=== PATIENT | female | born 1965 | race Caucasian/White ===

== ENCOUNTER 2016-09-02 15:13 | Emergency (ER) | payer MEDICAID ==
[~2016-09-02] VITALS: Ht 152.4 cm; Wt 55.5 kg
[~2016-09-02 15:13] MED LIST: CHOL100062 PO; GABA300C16 PO; GLIM4TAB PO; IBUP-1542 PO; METF500T4 PO; TERB250T46 PO
[2016-09-02 15:25] VITALS: Ht 152.4 cm; Wt 55.5 kg
[2016-09-02 16:41] LABS: URINE BLOOD (Dip) POC 3+ (NEGATIVE)
[2016-09-02] MEDS ORDERED: METF500T PO (17:25)
[2016-09-02] MEDS ORDERED: NITR-58 PO (17:25)
--- NOTE | 2016-09-02 17:32 | ERD ---
ER Documentation Chief Complaint Date/Time DATE: 09/02/16 TIME: 17:29 Chief Complaint Dysuria X 1 day and B feet pain x 3 months. HPI This is a 51-year-old female with a history of diabetes type 2 presenting to the emergency department complaining of painful urination, urgency and frequency for 1 day. Patient rates his for 10. She denies any hematuria. Denies any flank pain. Denies fever. Patient also states that she has bilateral feet numbness and hand numbness for the past 3 months that comes and goes. Patient states that she has not taken her diabetic medications for 2 months due to her insurance and she has not know the drug name ROS All systems reviewed and are negative except as per history of present illness. Medications Home Meds Active Scripts Metformin Hcl (Glucophage) 500 Mg Tablet, 500 MG PO BID, #60 TAB Prov:TATUM CARBAJAL PA-C 09/02/16 Nitrofurantoin Monohyd Macrocr* (Macrobid*) 100 Mg Capsr, 100 MG PO BID for 7 Days, CAP Prov:TATUM CARBAJAL PA-C 09/02/16 Reported Medications Terbinafine* (Lamisil*) 250 Mg Tablet, 250 MG PO DAILY, TAB 06/01/14 Glimepiride* (Glimepiride*) 4 Mg Tablet, 4 MG PO DAILY, TAB 06/01/14 Ibuprofen* (Ibuprofen*) 600 Mg Tablet, 600 MG PO Q6 Y for PAIN, TAB 06/01/14 Gabapentin* (Gabapentin*) 300 Mg Capsule, 300 MG PO BID, CAP 06/01/14 Cholecalciferol* (Vitamin D3*) 1,000 Unit Tablet, 5000 UNIT PO ONCE WEEKLY , TAB 06/01/14 Metformin* (Glucophage*) 500 Mg Tab, 500 MG PO BID, TAB 02/11/14 Allergies Allergies: Coded Allergies: No Known Drug Allergies (Verified Allergy, Mild, 09/02/16) PMhx/Soc Medical and Surgical Hx: pt denies Medical Hx, pt denies Surgical Hx History of Surgery: No Anesthesia Reaction: No Hx Neurological Disorder: No Hx Respiratory Disorders: No Hx Cardiac Disorders: No (DIABETES) Hx Psychiatric Problems: No Hx Miscellaneous Medical Probl: Yes (DM) Hx Alcohol Use: No Hx Substance Use: No Hx Tobacco Use: No Smoking Status: Never smoker Physical Exam Vitals Vital Signs Date Time Temp Pulse Resp B/P Pulse Ox O2 Delivery O2 Flow Rate FiO2 09/02/16 15:25 97.9 94 18 144/73 100 Physical Exam General: well-developed/well-nourished, in no apparent distress, non-toxic appearing HENT: NC/AT Eyes: Conjunctiva normal Neck: Supple Pulm: CTA bilaterally, normal breathing CV: Normal S1S2 GI: Soft, non-distended, normal bowel sounds, NTTP on suprapubic region Back: No midline tenderness, no masses, No CVAT Ext: No clubbing, cyanosis, or edema Neuro: Alert and orientated Skin: intact, normal turgor Psych: Normal mood and mentation Results 24 hrs Laboratory Tests Test 09/02/16 16:41 09/02/16 17:16 Bedside Urine Blood 3+ Bedside Urine Glucose (UA) 0.50% Bedside Urine Ketones (LAB) 1+ Bedside Urine Leukocyte Esterase (L Negative Bedside Urine Nitrite (LAB) Positive Bedside Urine Protein (LAB) 3+ Bedside Urine pH (LAB) 5.5 Bedside Glucose 262mg/dL Procedures/MDM This is a 51-year-old female with a history of diabetes type 2 presenting to the emergency room complaining of dysuria for 1 day likely due to a urinary tract infection. She also complains of bilateral hand and feet numbness most likely due to diabetic neuropathy. Patient has not taken her diabetic medications for the past few months. An Accu-Chek was done in the ED and it was 262, I have a low suspicion for hyperosmolar state or DKA. Patient will be given a prescription for metformin 500 mg twice daily for the next month with close follow-up with the primary care physician. A urine dipstick was done and showed positive leukocyte esterase and nitrite. Patient was given a perception for Macrobid, urine culture was also sent out. I have a low suspicion for pyelonephritis or infected nephrolithiasis. Patient is 20 stable, afebrile and appears well for discharge to follow-up with the primary care physician in the next couple days. She understands and agrees with this plan Departure Diagnosis: Primary Impression: UTI (urinary tract infection) Urinary tract infection type: acute cystitis Hematuria presence: with hematuria Qualified Code: N30.01 - Acute cystitis with hematuria Additional Impression: Hyperglycemia Condition: Stable Patient Instructions: Hyperglycemia (High Blood Sugar), Understanding Urinary Tract Infections (UTIs) [facility] Usted se hyman hecho un examen mdico de control que le indica que no est en becca condicin que requiera tratamiento urgente en el Departamento de Emergencia. Un estudio ms profundo y el tratamiento de bates condicin pueden esperar sin ningn riesgo hasta que usted sea atendida/o en el consultorio de bates mdico o becca cl kindra. Es responsabilidad suya arreglar becca ashvin para el seguimiento del charlette. MANEJO DE CONDICIONES NO URGENTES EN EL FUTURO 1) Si usted tiene un mdico de atencin primaria: Usted debera llamar a bates mdico de atencin primaria antes de venir al departamento de emergencia. Despus de las horas de consultorio, bates doctor o bates asociado/a est disponible por telfono. El mdico o enfermero de sreekanth en el servicio telefnico puede asesorarle por fidel medio para atender el problema, o charlette contrario se puede programar becca ashvin. 2) Si usted no tiene un mdico de atencin primaria: Llame al mdico o clnica de referencia que aparece abajo bob las horas de consultorio para hacer becca ashvin para que le vean. CLINICAS: [facility] [phone] [facility] [phone] [facility] [phone] [facility]. [facility] [phone] [facility]. [facility] [phone] [address] [facility]. [phone] [address] [place] Additional Instructions: Visite a bates mdico maana para un EXAMEN.Regrese a estas instalaciones si no se mejora moni esperbamos o moni le dijimos. [place] toda la medicina sheila y moni se le indic. Regrese a estas instalaciones si no se mejora moni esperbamos o moni le dijimos. TATUM CARBAJAL PA-C Sep 02, 2016 17:32
== END 2016-09-02 17:56 | disposition home or self-care (01) ==
LOC: FTE 15:13
DX: N30.01 Acute cystitis with hematuria (principal); E11.65 Type 2 diabetes mellitus with hyperglycemia; Z79.84 Long term (current) use of oral hypoglycemic drugs
CPT/HCPCS: 81003; 82962; 87086; Z7502; 99284

== ENCOUNTER 2017-07-19 19:31 | Observation (INO) | payer MEDICAID, OTHER ==
[~2017-07-19] VITALS: Ht 152.4 cm; Wt 55.4 kg
[~2017-07-19 19:31] MED LIST changes: +METF500T PO; +NITR-58 PO
[2017-07-19] MEDS ORDERED: ASPIRIN 325 MG TAB PO STA (20:44)
[2017-07-19] MEDS ORDERED: NITROGLYCERIN 2% 1 GM OINT PKT TD STA (20:44)
[2017-07-19 20:47] VITALS: TEMP 98.3
--- NOTE | 2017-07-19 21:16 | RADRPT ---
PROCEDURE: XR Chest. CLINICAL INDICATION: Chest pain TECHNIQUE: Single frontal view of the chest was obtained COMPARISON: CR CHEST 02/11/2014 FINDINGS: The heart and mediastinum are within normal limits. The lungs are clear. There is no pleural effusion or pneumothorax. ECG leads projected over the chest. IMPRESSION: No acute disease. RPTAT: HJES .Pradip Yen MD, MD Date Time Electronically viewed and signed by .Pradip Yen MD, on 07/19/2017 21:16 .S/
[2017-07-19 21:25] LABS: BASOPHILS % 0.4 % (0.0-2.0); EOSINOPHILS % 0.7 % (0.0-7.0); HEMATOCRIT 39.4 % (37.0-47.0); HEMOGLOBIN 13.9 g/dl (12.0-16.0); LYMPHOCYTES # 2.3 10^3/ul (0.8-2.9); LYMPHOCYTES % 39.6 % (15.0-51.0); MEAN CORPUSCULAR HEMOGLOBIN 30.2 pg (29.0-33.0); MEAN CORPUSCULAR HGB CONC 35.3 g/dl (32.0-37.0); MEAN CORPUSCULAR VOLUME 85.7 fl (82.0-101.0); MEAN PLATELET VOLUME 10.9 fl (7.4-10.4); MONOCYTE # 0.3 10^3/ul (0.3-0.9); MONOCYTES % 5.1 % (0.0-11.0); NEUTROPHIL # 3.1 10^3/ul (1.6-7.5); PLATELET COUNT 219 10^3/UL (140-415); RED CELL DISTRIBUTION WIDTH 11.7 % (11.5-14.5); WHITE BLOOD COUNT 5.7 10^3/ul (4.8-10.8)
[2017-07-19 21:42] LABS: ANION GAP 13 (8-16); BLOOD UREA NITROGEN 10 mg/dl (7-20); CARBON DIOXIDE 29 mmol/L (21-31); CHLORIDE 98 mmol/L (97-110); CREATININE 0.45 mg/dl (0.44-1.00); POTASSIUM 3.4 mmol/L (3.5-5.1); SODIUM 137 mmol/L (135-144)
[2017-07-19 21:50] LABS: GLUCOSE 428 mg/dl (70-220)
[2017-07-19] MEDS ORDERED: SOD CHLORIDE 0.9% 500 ML IV STA (21:52)
[2017-07-19] MEDS ORDERED: INSULIN LISPRO 100 UNIT/ML VIAL SC STA (21:52)
[2017-07-19 21:54] LABS: TROPONIN-I < 0.012 ng/ml (0.00-0.12)
--- NOTE | 2017-07-19 22:10 | ERD ---
ER Documentation Chief Complaint Chief Complaint C/O MADHAVI LEG/ARM NUMBESS X2 WEEKS, +CHEST PRESSURE. HPI This is a 52-year-old [place]araguan-speaking female. A certified court/medical interpreter was used. The patient describes approximately 24 hours of chest pain. She describes it as pressure-like, central and left-sided radiating to the left upper extremity. She denies any significant exertional symptoms, no pleuritic pain. She is a diabetic and states compliance with medications. She denies any fevers or chills, no mid back pain. Mild discomfort currently approximately 2 out of 10. No prior stress testing. ROS All systems reviewed and are negative except as per history of present illness. Medications Home Meds Active Scripts Metformin Hcl (Glucophage) 500 Mg Tablet, 500 MG PO BID, #60 TAB Prov:TATUM CARBAJAL PA-C 09/02/16 Discontinued Reported Medications Terbinafine* (Lamisil*) 250 Mg Tablet, 250 MG PO DAILY, TAB 06/01/14 Glimepiride* (Glimepiride*) 4 Mg Tablet, 4 MG PO DAILY, TAB 06/01/14 Ibuprofen* (Ibuprofen*) 600 Mg Tablet, 600 MG PO Q6 Y for PAIN, TAB 06/01/14 Gabapentin* (Gabapentin*) 300 Mg Capsule, 300 MG PO BID, CAP 06/01/14 Cholecalciferol* (Vitamin D3*) 1,000 Unit Tablet, 5000 UNIT PO ONCE WEEKLY , TAB 06/01/14 Metformin* (Glucophage*) 500 Mg Tab, 500 MG PO BID, TAB 02/11/14 Discontinued Scripts Nitrofurantoin Monohyd Macrocr* (Macrobid*) 100 Mg Capsr, 100 MG PO BID for 7 Days, CAP Prov:TATUM CARBAJAL PA-C 09/02/16 Allergies Allergies: Coded Allergies: No Known Drug Allergies (Verified Allergy, Mild, 07/19/17) PMhx/Soc Medical and Surgical Hx: pt denies Surgical Hx History of Surgery: No Anesthesia Reaction: No Hx Neurological Disorder: No Hx Respiratory Disorders: No Hx Cardiac Disorders: No (DIABETES) Hx Psychiatric Problems: No Hx Miscellaneous Medical Probl: No (DM) Hx Alcohol Use: No Hx Substance Use: No Hx Tobacco Use: No Smoking Status: Never smoker FmHx Family History: diabetes Physical Exam Vitals Vital Signs Date Time Temp Pulse Resp B/P Pulse Ox O2 Delivery O2 Flow Rate FiO2 07/19/17 20:47 98.3 87 20 194/96 100 07/19/17 19:37 98.3 82 20 178/84 100 Physical Exam General: Well developed, well nourished, no acute distress Head: Normocephalic, atraumatic. Eyes: Pupils equally reactive, EOM intact ENT: Moist mucous membranes Neck: Supple, no lymphadenopathy Respiratory: Lungs clear bilaterally, no distress Cardiovascular: RRR, no murmurs, rubs, or gallops Abdominal: Soft, non-tender, non-distended, no peritoneal signs : Deferred MSK: No edema, no unilateral swelling, 5/5 strength Neurologic: Alert and oriented, moving all extremities, normal speech, no focal weakness, no cerebellar signs Skin: No rash Psych: Normal mood Result Diagram: 07/19/17209907/19/17 2100 Results 24 hrs Laboratory Tests Test 07/19/17 20:58 07/19/17 21:00 Bedside Glucose 363mg/dL White Blood Count 5.710^3/ul Red Blood Count 4.6010^6/ul Hemoglobin 13.9g/dl Hematocrit 39.4% Mean Corpuscular Volume 85.7fl Mean Corpuscular Hemoglobin 30.2pg Mean Corpuscular Hemoglobin Concent 35.3g/dl Red Cell Distribution Width 11.7% Platelet Count 59689^3/UL Mean Platelet Volume 10.9fl Neutrophils % 54.0% Lymphocytes % 39.6% Monocytes % 5.1% Eosinophils % 0.7% Basophils % 0.4% Nucleated Red Blood Cells % 0.0/100WBC Neutrophils # 3.110^3/ul Lymphocytes # 2.310^3/ul Monocytes # 0.310^3/ul Eosinophils # 0.010^3/ul Basophils # 0.010^3/ul Nucleated Red Blood Cells # 0.010^3/ul Sodium Level 137mmol/L Potassium Level 3.4mmol/L Chloride Level 98mmol/L Carbon Dioxide Level 29mmol/L Anion Gap 13 Blood Urea Nitrogen 10mg/dl Creatinine 0.45mg/dl Glucose Level 428mg/dl Calcium Level 9.0mg/dl Troponin I < 0.012ng/ml Current Medications Medications (Trade) Dose Ordered Sig/Jocelyn Route PRN Reason Start Time Stop Time Status Last Admin Dose Admin Aspirin (Aspirin) 325 mg ONCE STAT PO 07/19/17 20:44 07/19/17 20:45 DC 07/19/17 21:11 Nitroglycerin (Nitroglycerin 2% Oint) 1 inch ONCE STAT TD 07/19/17 20:44 07/19/17 20:45 DC 07/19/17 21:13 Insulin Human Lispro 8 unit 8 unit ONCE STAT SC 07/19/17 21:52 07/19/17 22:00 DC Sodium Chloride (NS) 500 ml @ 500 mls/hr Q1H STAT IV 07/19/17 21:52 07/19/17 22:51 Procedures/MDM EKG, MONITORS, & DIAGNOSTIC IMAGING: EKG: I reviewed and interpreted a 12-lead EKG. Rhythm: Normal sinus rhythm Ectopy: None Intervals: No abnormalities ST segments: No elevations or depressions T waves: No contiguous inversions Repeat EKG: EKG: I reviewed and interpreted a 12-lead EKG. Rhythm: Normal sinus rhythm Ectopy: None Intervals: No abnormalities ST segments: No elevations or depressions T waves: No contiguous inversions Chest x-ray: I reviewed and interpreted a 1 view of the chest Mediastinum: No enlargement Cardiac silhouette: No cardiomegaly Airspace: Clear lung delgadillo bilaterally without evidence of pneumothorax Bones: No evidence of fracture LAB INTERPRETATION: Negative troponin, hyperglycemia without diabetic ketoacidosis MEDICAL DECISION MAKING: The patient's history, physical exam and clinical presentation is concerning for possible cardiogenic etiology and acute coronary syndrome. Based on the patient's clinical exam and history and risk factors, I have a much lower clinical concern for pulmonary embolism, acute aortic dissection, pneumothorax, pneumonia, cardiac tamponade HEART Score: 3 MACE Rate: 1.7% Shared Decision Making: We had a conversation regarding risk stratification, MACE rate, and the risks, benefits, alternatives of disposition planning options. Disposition planning: Given no prior risk stratification, patient's age, female gender and history of diabetes, atypical presentation as possible. I believe risk stratification and admission for rule out would be reasonable. Patient agreeable. ER COURSE: Aspirin and nitroglycerin provided. Hyperglycemia treated with 8 units of subcutaneous Humalog. No indication for drip. The patient was given IV fluids. She is resting comfortably. I kept the patient and/or family informed of laboratory and diagnostic imaging results throughout the emergency room course. DISPOSITION PLAN: Telemetry admission for management of chest pain to rule out acute coronary syndrome, serial enzymes, risk stratification and consideration of provocative testing CONSULTATION: Accepting care team and consultations: I discussed the current laboratory data, diagnostic imaging and emergency care provided. Admitting team: [xoxoxo] Admitting team indication: Insurance directed Departure Diagnosis: Primary Impression: Chest pain Chest pain type: unspecified Qualified Code: R07.9 - Chest pain, unspecified type Additional Impression: Hyperglycemia Condition: Stable BRITNEY BAIN MD Jul 19, 2017 22:10
[2017-07-20] VITALS (8 sets, daily range): BP systolic 115–144; BP diastolic 60–72; PULSE 70–73; RESP 18–22; Ht 152.4 cm; Wt 55.4 kg
[2017-07-20] MEDS ORDERED: ATORVASTATIN 40 MG TAB PO SCH ×2 (02:00→09:00)
[2017-07-20] MEDS ORDERED: ACCU-CHEK XX SCH (02:00)
[2017-07-20] MEDS ORDERED: morphine 2 MG INJ IV PRN (02:00)
[2017-07-20] MEDS ORDERED: ONDANSETRON 4 MG INJ IV PRN (02:00)
[2017-07-20] MEDS ORDERED: ACETAMINOPHEN 325 MG TAB PO PRN (02:00)
--- NOTE | 2017-07-20 02:11 | QN ---
Documentation Comment H&P dict a/p 1. cards: chest pain, plan stress and echo (H=1, E=0, A=1, R=2, T=0), sertial trop and med menagement 2. dm ooc 3. htn JAMAICA VELIZ MD Jul 20, 2017 02:10
[2017-07-20] MEDS ORDERED: DEXTROSE 50% 50 ML SYRINGE IV PRN ×2 (02:30)
[2017-07-20] MEDS ORDERED: GLUCOSE GEL 15 GRAM TUBE BUCCAL PRN (02:30)
[2017-07-20] MEDS ORDERED: GLUCAGON 1 MG INJ IM PRN (02:30)
[2017-07-20] MEDS ORDERED: GLUCOSE GEL 15 GRAM TUBE PO PRN ×2 (02:30)
[2017-07-20] MEDS: LISINOPRIL 10 MG TAB PO SCH ×2 (02:45→08:13)
[2017-07-20] MEDS: SOD CHLORIDE 0.9% 1,000 ML IV SCH ×2 (03:02→11:42)
[2017-07-20 05:45] LABS: CREATINE KINASE 31 IU/L (23-200)
[2017-07-20 05:58] LABS: CK-MB 0.59 ng/ml (0.0-2.4)
[2017-07-20 06:19] LABS: TROPONIN-I < 0.012 ng/ml (0.00-0.12)
--- NOTE | 2017-07-20 07:27 | HP ---
DATE OF ADMISSION: 07/20/2017 CHIEF COMPLAINT: Chest pain. HISTORY OF PRESENTING ILLNESS: The patient presents to the emergency room at [facility] chest pain. She states that earlier today she was cleaning up around the house when she began to experience chest pain with left arm numbness. This pain was with her for several hours prior to he r coming here to the emergency department. At the time of her arrival it had resolved and gone away . She describes this pain as somewhat sharp and pressure like. She does not identify any nausea, v omiting, diaphoresis or shortness of breath. PAST MEDICAL HISTORY: Significant for diabetes, hypertension. MEDICATIONS: Outpatient include only Metformin. ALLERGIES: NO KNOWN DRUG ALLERGIES. SOCIAL HISTORY: The patient lives at home in [place] with her daughter. Is independent of activit ies of daily living, not working. Does not smoke, drink or use illicit drugs. FAMILY HISTORY: Noncontributory. REVIEW OF SYSTEMS: Five systems reviewed and found not to be revealing. PHYSICAL EXAMINATION: VITAL SIGNS: Blood pressure is 178/84, pulse rate 82, respirations 20, temperature is 98.3. GENERAL: Pleasant woman in no acute distress, alert and oriented x3. HEENT: Normocephalic, atraumatic without evident scleral icterus, perioral cyanosis. Mucous membra bernabe are moist. NECK: Soft and supple without masses. No evidence of jugular venous distention or carotid bruits. CHEST: Clear to auscultation and percussion bilaterally. HEART: Regular rate and rhythm, S1, S2, no added sounds. ABDOMEN: Soft, nontender, nondistended without palpable hepatosplenomegaly. EXTREMITIES: Without clubbing, cyanosis or edema. SKIN: Without rashes. NEUROLOGIC: Grossly intact. LABORATORY STUDIES: Reveal hemoglobin 13.9 g/dL, white count of 5700, platelets of 219,000. Sodium 137, potassium 3.4, chloride 98, bicarbonate 29, BUN 10, creatinine 0.45, glucose 428. Troponin is negative. Chest x-ray does not reveal any acute cardiopulmonary disease. ASSESSMENT AND PLAN: 1. Chest pain. We will plan to rule out for cardiac ischemia with stress test and echocardiogram. The patient's heart score is [id number]. Obtain serial troponins and begin secondary prevention. 2. Diabetes, continue insulin sliding scale. Add Lantus. 3. Hypertension. Add lisinopril and Coreg. Dictated By: JAMAICA CARPENTER/NTS Conf#: [id number] DID#: [id number]
[2017-07-20] MEDS: INSULIN ASPART [NOVOLOG] 3 ML PEN SC SCH ×4 (07:55→17:29)
[2017-07-20 08:16] LABS: CREATINE KINASE 29 IU/L (23-200)
[2017-07-20 08:28] LABS: CK-MB 0.58 ng/ml (0.0-2.4)
[2017-07-20 08:31] LABS: TROPONIN-I < 0.012 ng/ml (0.00-0.12)
[2017-07-20] MEDS ORDERED: ASPIRIN 81 MG TAB PO SCH (09:00)
--- NOTE | 2017-07-20 12:02 | CONS ---
Date/Time of Note Date/Time of Note DATE: 07/20/17 TIME: 11:59 Assessment/Plan Assessment/Plan Additional Assessment/Plan Chest pain Hypertension Diabetes, likely not well controlled -Serial cardiac enzymes remain negative, ECG with no significant ischemic abnormalities. Nuclear cardiac perfusion study has already been ordered. Continue aspirin therapy if no contraindication, blood pressure management. Consultation Date/Type/Reason Admit Date/Time Jul 20, 2017 at 00:29 Type of Consultation: cv Reason for Consultation Chest pain Hx of Present Illness This is a 52-year-old female with past medical history of diabetes and hypertension who presents with chest discomfort yesterday. Symptoms were while patient was at home. Patient was doing some house hold activities but nothing strenuous. Pain was at times sharp like at times pins and needles at times pressure-like. There is no associated shortness of breath or diaphoresis. Symptoms waxed and waned and thus patient came to the emergency room. She has had no further symptoms since admission. Prior to this episode, she denies exertional chest pain, shortness of breath or palpitations. She is active and denies any exertional symptoms as mentioned above. 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 Exam/Review of Systems Vital Signs Vitals Vital Signs Date Time Temp Pulse Resp B/P Pulse Ox O2 Delivery O2 Flow Rate FiO2 07/20/17 08:10 71 07/20/17 05:58 98.2 18 129/68 100 07/20/17 05:00 Room Air Exam No apparent distress Constitutional: alert, oriented Head: normocephalic Respiratory: clear to auscultation, normal air movement, other Cardiovascular: other (S1-S2 heard), regular rate and rhythm Gastrointestinal: bowel sounds, non-tender, soft Extremities: other (No significant edema) Results Result Diagram: 07/19/17209907/19/17 2100 Results 24 hrs Laboratory Tests Test 07/19/17 20:58 07/19/17 21:00 07/19/17 23:02 07/20/17 02:49 Bedside Glucose 363 H 353 H 173 White Blood Count 5.7 Red Blood Count 4.60 Hemoglobin 13.9 Hematocrit 39.4 Mean Corpuscular Volume 85.7 Mean Corpuscular Hemoglobin 30.2 Mean Corpuscular Hemoglobin Concent 35.3 Red Cell Distribution Width 11.7 Platelet Count 219 Mean Platelet Volume 10.9 H Neutrophils % 54.0 Lymphocytes % 39.6 Monocytes % 5.1 Eosinophils % 0.7 Basophils % 0.4 Nucleated Red Blood Cells % 0.0 Neutrophils # 3.1 Lymphocytes # 2.3 Monocytes # 0.3 Eosinophils # 0.0 Basophils # 0.0 Nucleated Red Blood Cells # 0.0 Sodium Level 137 Potassium Level 3.4 L Chloride Level 98 Carbon Dioxide Level 29 Anion Gap 13 Blood Urea Nitrogen 10 Creatinine 0.45 Glucose Level 428 *H Calcium Level 9.0 Troponin I < 0.012 Test 07/20/17 04:49 07/20/17 07:21 07/20/17 07:42 07/20/17 09:23 Creatine Kinase 31 29 Creatine Kinase Index 1.9 2.0 Creatinine Kinase MB (Mass) 0.59 0.58 Troponin I < 0.012 < 0.012 Bedside Glucose 225 H 249 H Test 07/20/17 11:39 Bedside Glucose 171 Medications Medications Current Medications Aspirin (Aspirin) 81 mg DAILY PO Last administered on 07/20/17 08:13; Admin Dose 81 MG; Start 07/20/17 at 09:00 Lisinopril (Zestril) 10 mg BID PO Last administered on 07/20/17 08:13; Admin Dose 10 MG; Start 07/20/17 at 02:00 Acetaminophen (Tylenol Tab) 650 mg Q4H PRN PO pain/fever; Start 07/20/17 at 02: 00 Ondansetron HCl (Zofran Inj) 4 mg Q4H PRN IV nausea; Start 07/20/17 at 02:00 Morphine Sulfate (morphine) 2 mg Q2H PRN IV pain; Start 07/20/17 at 02:00 Insulin Glargine (Lantus) 6 unit QHS SC ; Start 07/20/17 at 21:00 Diagnostic Test (Pha) 1 ea 1 ea 02 XX Last administered on 07/20/17 02:55; Admin Dose 1 EA; Start 07/20/17 at 02:00 Sodium Chloride (NS) 1,000 ml @ 100 mls/hr Q10H IV Last administered on 03:02; Admin Dose 100 MLS/HR; Start 07/20/17 at 02:00 Atorvastatin Calcium (Lipitor) 40 mg DAILY PO Last administered on 07/20/17 08 :13; Admin Dose 40 MG; Start 07/20/17 at 09:00 Miscellaneous Information 1 ea NOTE XX ; Start 07/20/17 at 02:30 Glucose (Glutose) 15 gm Q15M PRN PO DECREASED GLUCOSE; Start 07/20/17 at 02:30 Glucose (Glutose) 22.5 gm Q15M PRN PO DECREASED GLUCOSE; Start 07/20/17 at 02: 30 Dextrose (D50w Syringe) 25 ml Q15M PRN IV DECREASED GLUCOSE; Start 07/20/17 at 02:30 Dextrose (D50w Syringe) 50 ml Q15M PRN IV DECREASED GLUCOSE; Start 07/20/17 at 02:30 Glucagon (Glucagen) 1 mg Q15M PRN IM DECREASED GLUCOSE; Start 07/20/17 at 02:30 Glucose (Glutose) 15 gm Q15M PRN BUCCAL DECREASED GLUCOSE; Start 07/20/17 at 02 :30 Influenza Virus Vaccine (Fluzone) 0.5 ml ONCE ONCE IM* ; Start 07/21/17 at 09:00 ; Stop 07/21/17 at 09:01 Procedures Procedures ECG with sinus rhythm, normal QRS duration, nonspecific ST abnormalities Dannie Warner DO Jul 20, 2017 12:02
--- NOTE | 2017-07-20 12:02 | PN ---
Date/Time of Note Date/Time of Note DATE: 07/20/17 TIME: 11:39 Assessment/Plan VTE Prophylaxis VTE Prophylaxis Intervention: ambulation Lines/Catheters IV Catheter Type (from Nrs): Peripheral IV Central line still needed: No Urinary Cath still in place: No Assessment/Plan Problems: (1) Chest pain Status: Resolved Comment: Midsternal chest pain not relate to nausea/vomiting nor short of breath. It was resolved on its own on arrival to ER. No previous chest pain . No [place] but uncontrolled type 2 DM on metformin in her personal history. Significant family history of type2 DM. Plan: 1.81 mg aspirin,statin to keep LDL<100 .ACEI added for renal protection . 2.Life style modification including daily exercise more than 30mins walking and diabetic diet recommended. 3.Stress test for risk stratification. IF negative stress test .she can go home today with home medication recommend as mentioned as above. Discussed the plan with Dr. Warner today Qualifiers: Chest pain type: unspecified Qualified Code: R07.9 - Chest pain, unspecified type (2) Intractable headache due to drug Status: Acute Comment: It was relate to nitro paste. Plan Nitro paste removed . Tylenol given as needed for mild to moderate headache. 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 Low dose Amaryl added to metformin to control blood sugar Assessment/Plan Hyperkalemia Potassium level monitoring. Diet recommended. Subjective 24 Hr Interval Summary Constitutional: improved, No chills, No diaphoresis, No disoriented, No febrile, No no complaints, No other, No poor po, No requiring IVF, No requiring O2 Eyes: no complaints, No discharge, No other, No pain, No redness, No visual change ENT: no complaints, No bleeding, No congestion, No discharge, No dysphagia, No other, No pain, No sore throat Respiratory: cough (dry cough), no complaints, No other, No pain, No pleuritic pain, No shortness of breath, No sputum, No wheezing Cardiovascular: no complaints, No chest pain, No edema, No lightheadedness, No orthopenea, No other, No palpitations, No paroxysmal nocturnal dyspnea Gastrointestinal: no complaints, No blood, No constipation, No decreased appetite, No diarrhea, No flatus, No nausea, No other, No pain, No passing stool, No vomiting Genitourinary: no complaints, No bleeding, No discharge, No dysuria, No flank pain, No hematuria, No other Musculoskeletal: no complaints, No back pain, No bone/joint pain, No neck pain, No other, No restricted range of motion, No swelling Skin: no complaints, No bruising, No erythema, No laceration, No other, No pruritis, No rash, No skin lesions Neurologic: headache (bitemporal throbbing headaches off and on . It was 6/10 in intensity), No confusion, No dizziness, No focal-weakness, No no complaints, No other, No seizure, No syncope Endocrine: no complaints, No dry skin, No other, No polydypsia, No polyuria, No temp intolerance Lymphatic: no complaints, No adenopathy, No lymphadema, No other, No tender nodes Psychological: nl mood/affect, no complaints, No anxiety, No confusion, No depression, No other, No suicidal Immunologic: no complaints, No immunodeficiency, No other, No pruritis, No rhinitis, No urticaria Exam/Review of Systems Vital Signs Vitals Vital Signs Date Time Temp Pulse Resp B/P Pulse Ox O2 Delivery O2 Flow Rate FiO2 07/20/17 08:10 71 07/20/17 05:58 98.2 18 129/68 100 07/20/17 05:00 Room Air Exam Constitutional: alert, oriented (to time ,place and person) Psych: No anxiety, No confusion, No depression, No nl mood/affect, No no complaints, No other, No suicidal Head: atraumatic, normocephalic Eyes: EOMI, PERRL, nl conjunctiva, nl lids, No fundi, disc, No icteric, No nl sclera, No other ENMT: No intubated, No mucosa pink and moist, No nl external ears & nose, No nl lips & teeth, No nl nasal mucosa & septum, No other, No tympanic membranes Neck: No bruits, No jvd, No masses, No non-tender, No nuchal rigidity, No other , No supple, No thyromegaly Respiratory: clear to auscultation, normal air movement, No congested cough, No crackles/rales, No diminished breath sounds, No intercostal retraction, No labored breathing, No other, No respirations, No tactile fremitus, No wheezing Cardiovascular: nl pulses, regular rate and rhythm, No S3, No S4, No bruits, No diastolic murmur, No edema, No gallop, No irregular rhythm, No jugular venous distention (JVD), No murmurs/extra sounds, No other, No rub, No systolic murmur Gastrointestinal: nl liver, spleen, non-tender, soft, No ascites, No bowel sounds, No distended, No firm, No hepatomegaly, No mass , No other, No rebound or guarding, No splenomegaly, No surgical scars, No tender Genitourinary - Female: No CVA tenderness, No other, No uterus Musculoskeletal: nl extremities to inspection, nl gait and stance, No joint tenderness, No muscle tone, No muscle weakness, No other, No range of motion, No spine non-tender, No swelling Extremities: normal pulses, No calf tenderness, No clubbing, No cyanosis, No edema, No other, No palpable cord, No pitting pedal edema, No tenderness Neurological: nl mental status, nl speech, nl strength Skin: No diaphoresis, No ecchymosis, No laceration, No nl turgor, No other, No puncture, No rash or lesions Lymph: nl lymph nodes, No enlarged, No nontender, No other Results Initial EKG at ER showed normal sinus rhythm and no ST -T changes Negative troponin levels time two. Result Diagram: 07/19/17209907/19/17 2100 Results 24 hrs Laboratory Tests Test 07/19/17 20:58 07/19/17 21:00 07/19/17 23:02 07/20/17 02:49 Bedside Glucose 363 H 353 H 173 White Blood Count 5.7 Red Blood Count 4.60 Hemoglobin 13.9 Hematocrit 39.4 Mean Corpuscular Volume 85.7 Mean Corpuscular Hemoglobin 30.2 Mean Corpuscular Hemoglobin Concent 35.3 Red Cell Distribution Width 11.7 Platelet Count 219 Mean Platelet Volume 10.9 H Neutrophils % 54.0 Lymphocytes % 39.6 Monocytes % 5.1 Eosinophils % 0.7 Basophils % 0.4 Nucleated Red Blood Cells % 0.0 Neutrophils # 3.1 Lymphocytes # 2.3 Monocytes # 0.3 Eosinophils # 0.0 Basophils # 0.0 Nucleated Red Blood Cells # 0.0 Sodium Level 137 Potassium Level 3.4 L Chloride Level 98 Carbon Dioxide Level 29 Anion Gap 13 Blood Urea Nitrogen 10 Creatinine 0.45 Glucose Level 428 *H Calcium Level 9.0 Troponin I < 0.012 Test 07/20/17 04:49 07/20/17 07:21 07/20/17 07:42 07/20/17 09:23 Creatine Kinase 31 29 Creatine Kinase Index 1.9 2.0 Creatinine Kinase MB (Mass) 0.59 0.58 Troponin I < 0.012 < 0.012 Bedside Glucose 225 H 249 H Imaging Free Text/Dictation Normal heart size and no pulmonary edema nor pneumonia Medications Medications Current Medications Aspirin (Aspirin) 81 mg DAILY PO Last administered on 07/20/17 08:13; Admin Dose 81 MG; Start 07/20/17 at 09:00 Lisinopril (Zestril) 10 mg BID PO Last administered on 07/20/17 08:13; Admin Dose 10 MG; Start 07/20/17 at 02:00 Acetaminophen (Tylenol Tab) 650 mg Q4H PRN PO pain/fever; Start 07/20/17 at 02: 00 Ondansetron HCl (Zofran Inj) 4 mg Q4H PRN IV nausea; Start 07/20/17 at 02:00 Morphine Sulfate (morphine) 2 mg Q2H PRN IV pain; Start 07/20/17 at 02:00 Insulin Glargine (Lantus) 6 unit QHS SC ; Start 07/20/17 at 21:00 Diagnostic Test (Pha) 1 ea 1 ea 02 XX Last administered on 07/20/17 02:55; Admin Dose 1 EA; Start 07/20/17 at 02:00 Sodium Chloride (NS) 1,000 ml @ 100 mls/hr Q10H IV Last administered on 03:02; Admin Dose 100 MLS/HR; Start 07/20/17 at 02:00 Atorvastatin Calcium (Lipitor) 40 mg DAILY PO Last administered on 07/20/17 08 :13; Admin Dose 40 MG; Start 07/20/17 at 09:00 Miscellaneous Information 1 ea NOTE XX ; Start 07/20/17 at 02:30 Glucose (Glutose) 15 gm Q15M PRN PO DECREASED GLUCOSE; Start 07/20/17 at 02:30 Glucose (Glutose) 22.5 gm Q15M PRN PO DECREASED GLUCOSE; Start 07/20/17 at 02: 30 Dextrose (D50w Syringe) 25 ml Q15M PRN IV DECREASED GLUCOSE; Start 07/20/17 at 02:30 Dextrose (D50w Syringe) 50 ml Q15M PRN IV DECREASED GLUCOSE; Start 07/20/17 at 02:30 Glucagon (Glucagen) 1 mg Q15M PRN IM DECREASED GLUCOSE; Start 07/20/17 at 02:30 Glucose (Glutose) 15 gm Q15M PRN BUCCAL DECREASED GLUCOSE; Start 07/20/17 at 02 :30 Influenza Virus Vaccine (Fluzone) 0.5 ml ONCE ONCE IM* ; Start 07/21/17 at 09:00 ; Stop 07/21/17 at 09:01 ODIN VILLANUEVA MD Jul 20, 2017 11:53
[2017-07-20 12:36] LABS: CHOL/HDL RATIO 4.5 RATIO
--- NOTE | 2017-07-20 13:01 | RADRPT ---
Echocardiogram Report Patient Name: NAINA MCKAY Gender: Female Date: 1965 Study Date: 20-Jul-2017 Paraeducator: Junie Damon [facility] Location: 531 Ref. Physician: JAMAICA VELIZ Quality: Good Procedures: Transthoracic echocardiogram with complete 2D, M-Mode, and doppler examination. Indications: Chest Pain. 2D/M Mode Doppler Measurement Value Normal Ranges Measurement Value Normal Ranges LVIDd 2D 4.2 3.5 - 5.6 cm AV Peak Regulo 1.5 m/sec LVIDs 2D 2.8 2.1 - 4.1 cm AV Peak PG 8.9 mmHg LVPWd 2D 1.0 0.6 - 1.1 cm LVOT Peak Regulo 0.8 m/sec IVSd 2D 1.0 0.6 - 1.1 cm LVOT Peak PG 2.8 mmHg AoR Diam 2D 2.3 2.0 - 3.7 cm MV E Peak Regulo 0.8 m/sec EDV 2D 79.2 cm3 MV A Peak Regulo 1.0 m/sec ESV 2D 22.8 cm3 MV E/A 0.8 LA Dimen 2D 3.6 2.3 - 4.0 cm MV Decel Time 195 msec MV Decel Amelia 4 MV E/A 0.8 TR Peak Regulo 3.4 m/sec TR Peak PG 45.0 mmHg RVSP 48.0 mmHg Findings Left Ventricle: Normal left ventricular systolic function. Normal left ventricular cavity size. Normal left ventricular wall thickness. Ejection fraction is visually estimated at 55 %. Tissue Doppler/Mitral Doppler indices are consistent with impaired relaxation (Stage I diastolic dysfunction). Right Ventricle: Normal right ventricular size. Normal right ventricular systolic function. Left Atrium: The left atrium is normal in size. Right Atrium: The right atrium is normal in size. Mitral Valve: Normal appearance and function of the mitral valve with trace physiologic regurgitation. Aortic Valve: Normal appearance of the aortic valve. No significant aortic stenosis or insufficiency. Tricuspid Valve: Normal appearance of the tricuspid valve. Estimated peak PA systolic pressure 48 mmHg. There is moderate tricuspid regurgitation. Pulmonic Valve: Normal pulmonic valve appearance. Pericardium: Normal pericardium with no significant pericardial effusion. Aorta: Normal aortic root. IVC: Normal size and normal respiratory collapse consistent with normal right atrial pressure. Conclusions 1.Normal left ventricular systolic function. Normal left ventricular cavity size. Normal left ventricular wall thickness. Ejection fraction is visually estimated at 55 %. Tissue Doppler/Mitral Doppler indices are consistent with impaired relaxation (Stage I diastolic dysfunction). 2.Normal right ventricular size. Normal right ventricular systolic function. 3.The left atrium is normal in size. 4.The right atrium is normal in size. 5.Normal appearance of the tricuspid valve. Estimated peak PA systolic pressure 48 mmHg. There is moderate tricuspid regurgitation. 6.No significant valvular stenosis or regurgitation seen of remaining visualized valves. 7.Normal pericardium with no significant pericardial effusion. Electronically Signed By: Dannie Warner 20-Jul-2017 13:00:36 -0800 Patient Name: NAINA MCKAY Study Date: 20-Jul-2017 [id number]
[2017-07-20] MEDS ORDERED: REGADENOSON 0.4 MG/5 ML SYG ONE (14:07)
--- NOTE | 2017-07-20 15:17 | PDOCDIS ---
Discharge Instructions CONDITION Patient Condition: Stable HOME CARE INSTRUCTIONS: Diet Instructions: Diabetic diet 1800 Kcal/day ACTIVITY: Activity Restrictions: Slowly Increase Activity (and as tolerated) FOLLOW UP/APPOINTMENTS Follow-up Plan Follow up with new primary care physician in 1-2 weeks Diabetic education as an outpatient in 1-2 weeks SCHOOL/WORK RELEASE May return to School/Work with: No Restrictions ODIN VILLANUEVA MD Jul 20, 2017 15:17
[2017-07-20] MEDS ORDERED: LISI10TA2 PO (15:25)
[2017-07-20] MEDS ORDERED: ATOR40TA68 PO (15:25)
[2017-07-20] MEDS ORDERED: METF500T PO (15:25)
[2017-07-20] MEDS ORDERED: ASPI81TA3 PO (15:26)
[2017-07-20] MEDS ORDERED: GLIM2TAB47 PO (15:29)
--- NOTE | 2017-07-20 15:40 | DS ---
Date/Time of Note Date/Time of Note DATE: 07/20/17 TIME: 15:33 Discharge Summary Admission/Discharge Info Admit Date/Time Jul 20, 2017 at 00:29 Discharge Date/Time 07/20/2017 Discharge Diagnosis Chest pain related non cardiac in origin Patient Condition: Good Consults Dr. Dannie Warner,Psychologist Developmental Procedures Lexiscan stress test done 07/20/2017 Echocardiogram 07/20/2017 showed normal EF,no wall abnormality Hx of Present Illness This is a 52 years old [place] lady with significant medical illness of hypertension,uncontrolled type 2 on Metformin, and not on diet controlled who is admitted to the hospital at this time due to mid sternal chest pain .The pain was 6/10 in intensity. It was not relate to shortness of breath nor feeling nauseated. The pain was resolved at ER after aspirin and nitro paste given at ER. Initial EKG was negative. Negative two sets of troponin. CXR was normal. She was sent to telemetry floor for further evaluation and management. Hospital Course while she has been here,She got normal echocardiogram. She was asymptomatic. Vital signs are stable. She has been given Insulin and low dose Lantus nightly. Her fasting blood sugar was 246. She has been given diabetic diet. and increased dose of metformin. Amaryl added on too. Diabetic education as an outpatient in 1-2 week. Walking 3omins daily recommended as well as 1800 Kcal diabetic diet. Vital Signs Date Time Temp Pulse Resp B/P Pulse Ox O2 Delivery O2 Flow Rate FiO2 07/20/17 12:05 70 07/20/17 12:01 98.4 21 134/69 98 07/20/17 05:00 Room Air Const: She was alert and oriented to place,time and person. She was not in acute distress. No PND nor orthopnea. Head: Normocephalic and atraumatic head. No scalp injury. Eyes: Normal Conjunctiva ENT: Normal External Ears, Nose and Mouth. Neck: Full range of motion. No meningismus. Resp: Clear to auscultation bilaterally. No wheezes or crackles on both lung delgadillo. Cardio: Regular rate and rhythm, no murmurs Abd: Soft, non tender, non distended. Normal bowel sounds. Skin: No petechiae or rashes. Back: No midline or flank tenderness Ext: No cyanosis, or pedal edema Neuro: Awake and alert. No grossly neurological deficit. Psych: Normal Mood and Affect. Home Meds Active Scripts Glimepiride* (Amaryl*) 2 Mg Tablet, 2 MG PO WITH BREAKFAST for 30 Days, #30 TAB Prov:ODIN VILLANUEVA MD 07/20/17 Aspirin (Aspirin) 81 Mg Chew, 81 MG PO DAILY for 30 Days, #30 TAB 2 Refills Prov:ODIN VILLANUEVA MD 07/20/17 Atorvastatin* (Atorvastatin*) 40 Mg Tablet, 10 MG PO DAILY for 30 Days, #30 TAB Prov:ODIN VILLANUEVA MD 07/20/17 Lisinopril* (Lisinopril*) 10 Mg Tablet, 10 MG PO BID for 30 Days, #60 TAB Prov:ODIN VILLAUNEVA MD 07/20/17 Metformin Hcl (Glucophage) 500 Mg Tablet, 750 MG PO BID for 30 Days, #60 TAB 4 Refills Prov:ODIN VILLANUEVA MD 07/20/17 Discontinued Reported Medications Terbinafine* (Lamisil*) 250 Mg Tablet, 250 MG PO DAILY, TAB 06/01/14 Glimepiride* (Glimepiride*) 4 Mg Tablet, 4 MG PO DAILY, TAB 06/01/14 Ibuprofen* (Ibuprofen*) 600 Mg Tablet, 600 MG PO Q6 Y for PAIN, TAB 06/01/14 Gabapentin* (Gabapentin*) 300 Mg Capsule, 300 MG PO BID, CAP 06/01/14 Cholecalciferol* (Vitamin D3*) 1,000 Unit Tablet, 5000 UNIT PO ONCE WEEKLY , TAB 06/01/14 Metformin* (Glucophage*) 500 Mg Tab, 500 MG PO BID, TAB 02/11/14 Discontinued Scripts Nitrofurantoin Monohyd Macrocr* (Macrobid*) 100 Mg Capsr, 100 MG PO BID for 7 Days, CAP Prov:TATUM CARBAJAL PA-C 09/02/16 Follow-up Plan Follow up with new primary care physician in 1-2 weeks Diabetic education as an outpatient in 1-2 weeks Primary Care Provider Care Physician No Primary Time spent on discharge: > 30 minutes Pending Labs Laboratory Tests Test 07/19/17 20:58 12/4/17 21:00 07/19/17 23:02 07/20/17 02:49 Bedside Glucose 363mg/dL (70-220) 353mg/dL (70-220) 173mg/dL (70-220) White Blood Count 5.710^3/ul (4.8-10.8) Red Blood Count 4.6010^6/ul (4.20-5.40) Hemoglobin 13.9g/dl (12.0-16.0) Hematocrit 39.4% (37.0-47.0) Mean Corpuscular Volume 85.7fl (82.0-101.0) Mean Corpuscular Hemoglobin 30.2pg (29.0-33.0) Mean Corpuscular Hemoglobin Concent 35.3g/dl (32.0-37.0) Red Cell Distribution Width 11.7% (11.5-14.5) Platelet Count 75065^3/UL (140-415) Mean Platelet Volume 10.9fl (7.4-10.4) Neutrophils % 54.0% (39.0-77.0) Lymphocytes % 39.6% (15.0-51.0) Monocytes % 5.1% (0.0-11.0) Eosinophils % 0.7% (0.0-7.0) Basophils % 0.4% (0.0-2.0) Nucleated Red Blood Cells % 0.0/100WBC (0.0-0.0) Neutrophils # 3.110^3/ul (1.6-7.5) Lymphocytes # 2.310^3/ul (0.8-2.9) Monocytes # 0.310^3/ul (0.3-0.9) Eosinophils # 0.010^3/ul (0.0-0.5) Basophils # 0.010^3/ul (0.0-0.1) Nucleated Red Blood Cells # 0.010^3/ul (0.0-0.0) Sodium Level 137mmol/L (135-144) Potassium Level 3.4mmol/L (3.5-5.1) Chloride Level 98mmol/L (97-110) Carbon Dioxide Level 29mmol/L (21-31) Anion Gap 13 (8-16) Blood Urea Nitrogen 10mg/dl (7-20) Creatinine 0.45mg/dl (0.44-1.00) Glucose Level 428mg/dl (70-220) Calcium Level 9.0mg/dl (8.4-10.2) Troponin I < 0.012ng/ml (0.00-0.12) Test 07/20/17 04:49 07/20/17 07:21 07/20/17 07:42 07/20/17 09:23 Creatine Kinase 31IU/L (23-200) 29IU/L (23-200) Creatine Kinase Index 1.9 2.0 Creatinine Kinase MB (Mass) 0.59ng/ml (0.0-2.4) 0.58ng/ml (0.0-2.4) Troponin I < 0.012ng/ml (0.00-0.12) < 0.012ng/ml (0.00-0.12) Triglycerides Level 127mg/dl (0-149) Cholesterol Level 133mg/dl (100-200) LDL Cholesterol, Calculated 79mg/dl HDL Cholesterol 29mg/dl (37-92) Cholesterol/HDL Ratio 4.5RATIO Bedside Glucose 225mg/dL (70-220) 249mg/dL (70-220) Test 07/20/17 11:39 Bedside Glucose 171mg/dL (70-220) Stress test result pending. ODIN VILLANUEVA MD Jul 20, 2017 15:40
[2017-07-20] MEDS ORDERED: INFLUENZA VIRUS VACCINE 0.5 ML (DISPENSING) IM* ONE (16:00)
--- NOTE | 2017-07-20 16:55 | EN ---
Date/Time of Note Date/Time of Note DATE: 07/20/17 TIME: 16:53 Event Note Cardiology Cardiology Event Note Lexiscan nuclear stress test 07/20/2017 This is a 52-year-old female who presents with chest pain Baseline ECG sinus rhythm at 77 bpm, QRS duration, nonspecific ST abnormalities Baseline blood pressure 155/79 Lexiscan administered as per protocol Symptoms of shortness of breath and fatigue which resolved in recovery Peak heart rate 108 Peak blood pressure 159/80 ECG changes none ECG interpretation nonischemic Dannie Warner DO Jul 20, 2017 16:55
[2017-07-20 17:17] LABS: D-DIMER 303.47 ng/ml (<460)
--- NOTE | 2017-07-20 18:22 | RADRPT ---
PROCEDURE: Lexiscan myocardial perfusion study CLINICAL INDICATION: 52 -year-old patient complaining of chest pain. TECHNIQUE: Lexiscan 0.4 mg intravenously separate acquisition gated myocardial perfusion SPECT usi ng Tc 99m Myoview 30.1 mCi intravenously at stress and Tc-99m Myoview, 9.3 mCi intravenously at rest was performed using the rest/stress sequence. Poststress Myoview SPECT images were obtained in the supine position. COMPARISON: No prior studies. FINDINGS: Perfusion images reveal no evidence of perfusion defects. Lexiscan post stress gated SPECT images demonstrate no wall motion abnormalities. IMPRESSION: 1. Normal study with no evidence of perfusion defects or wall motion abnormalities. 2. The left ventricle ejection fraction at stress is 60%. A call report was made to Dr. Warner at 06:20 p.m. on July 20, 2017. RPTAT: HH .Juana Nicholson MD, Date Time Electronically viewed and signed by .Juana Nicholson MD, MD on 07/20/2017 18:21 .L/
[2017-07-20] MEDS ORDERED: INSULIN GLARGINE [LANtus] 3 ML PEN SC SCH (21:00)
[2017-07-21] MEDS ORDERED: INFLUENZA VIRUS VACCINE 0.5 ML (DISPENSING) IM* ONE (09:00)
== END 2017-07-20 19:20 | disposition home or self-care (01) ==
LOC: E/R 19:31 → INTOOBSV 07-20 00:29 → TEL 07-20 00:29
PROVIDERS: ADMIT Legal Medicine; ATTEND Legal Medicine
DX: R07.89 Other chest pain (principal); I10 Essential (primary) hypertension; E11.65 Type 2 diabetes mellitus with hyperglycemia; Z79.84 Long term (current) use of oral hypoglycemic drugs; E78.5 Hyperlipidemia, unspecified; Z79.82 Long term (current) use of aspirin; Z23 Encounter for immunization
CPT/HCPCS: 36415; 71010; 78452; 80048; 80061; 82550; 82553; 82962; 84484; 85025; 85378; 90686; 93005; 93017; 93306; 96372; A9500; A9505; J1815; J2785; J7030; J7040; Z7500; Z7502; Z7610; 99217; G0378

== ENCOUNTER 2017-10-05 12:37 | Emergency (ER) | END 2017-10-05 15:01 | disposition home or self-care (01) ==

== ENCOUNTER 2018-03-13 15:58 | Emergency (ER) | END 2018-03-13 17:46 | disposition home or self-care (01) ==

== ENCOUNTER 2018-03-30 21:58 | Emergency (ER) | END 2018-03-31 03:14 | disposition home or self-care (01) ==

== ENCOUNTER 2018-12-12 01:18 | Emergency (ER) | payer OTHER ==
[~2018-12-12] VITALS: Ht 154.9 cm; Wt 54.3 kg
[~2018-12-12 01:18] MED LIST changes: +AMOX1TAB10 PO; +ASPI-831 PO; +ATOR40TA68 PO; +CEPH-443 PO; -CHOL100062 PO; -GABA300C16 PO; +GLIM2TAB47 PO; -GLIM4TAB PO; +HYDR-4011 PO; -IBUP-1542 PO; +IBUP-1561 PO; +LISI10TA2 PO; -METF500T4 PO; +NEOM28.33 TP; -NITR-58 PO; +SULF1TAB31 PO; -TERB250T46 PO
[2018-12-12 01:19] VITALS: Ht 154.9 cm; Wt 54.3 kg
[2018-12-12] MEDS ORDERED: SOD CHLORIDE 0.9% 540 ML IV ONE (02:00)
[2018-12-12] MEDS ORDERED: INSULIN REGULAR, HUMAN 100 UNIT/1 ML 3ML VIAL SC ONE (04:00)
--- NOTE | 2018-12-12 04:24 | ERD ---
ER Documentation Chief Complaint Chief Complaint NUMBNESS BUE AND BLE; NO OTHER NEURO S/S; HX OF DM; ACCUCHECK 369 HPI This is a 53-year-old female presents for evaluation of multiple complaints: #Bilateral upper extremity and lower extremity numbness. Patient states that she has been having the symptoms on and off for the last month, they are associated with pain, RCC to her feet bilaterally, as well as her hands. She denies any weakness, she has not had any dysphasia, no dysarthria, no fever, no bowel bladder incontinence per #Left-sided ear pain, she has felt fullness and pain to her left ear. She denies fever, denies history of trauma. She denies any drainage from her ear. She does endorse hearing changes, the symptoms have been ongoing for the last 2 weeks ROS All systems reviewed and are negative except as per history of present illness. Medications Home Meds Active Scripts Ciprofloxacin Hcl/Dexameth (Ciprodex Otic Suspension) 7.5 Ml Drops.susp, 4 DROP BOTH EARS BID for 7 Days, EA Prov:NETTE CONTRERAS MD 12/12/18 Cephalexin* (Keflex*) 500 Mg Capsule, 500 MG PO QID for 5 Days, CAP Prov:NETTE CONTRERAS MD 12/12/18 Neomycin Aparicio/Bacitrac Zn/Poly (Neosporin Ointment) 28.3 Gm Oint...g., 28.3 GM TP BID for 3 Days Prov:ERROL,RAI 03/31/18 Cephalexin* (Keflex*) 500 Mg Capsule, 500 MG PO QID for 10 Days, #40 CAP Prov:ERROL,RAI 03/31/18 Sulfamethoxazole/Trimethoprim* (Bactrim Ds* Tablet) 1 Each Tablet, 1 TAB PO BID for 7 Days, #14 TAB Prov:ERROL,RAI 03/31/18 Ibuprofen* (Motrin*) 400 Mg Tab, 400 MG PO Q6, #30 TAB Prov:AZRA SCHULTZ PA-C 03/13/18 Amoxicillin/Potassium Clav (Amox-Clav 875-125 mg Tablet) 875-125 mg Tab, 1 TAB PO BID for 7 Days, #14 TAB Prov:AZRA SCHULTZ PA-C 03/13/18 Hydrocodone/Acetaminophen ([place] 5-325 Tablet) 1 Each Tablet, 1 TAB PO Q6H PRN for PAIN, #20 TAB Prov:PASILABANSHRUTHI 10/05/17 Sulfamethoxazole/Trimethoprim* (Bactrim Ds* Tablet) 1 Each Tablet, 1 TAB PO BID for 7 Days, #14 TAB Prov:NEOILASHRUTHI STOKES F 10/05/17 Cephalexin* (Keflex*) 500 Mg Capsule, 500 MG PO QID for 5 Days, CAP Prov:PASILABANSHRUTHI F 10/05/17 Glimepiride* (Amaryl*) 2 Mg Tablet, 2 MG PO WITH BREAKFAST for 30 Days, #30 TAB Prov:ODIN VILLANUEVA MD 07/20/17 Aspirin (Aspirin) 81 Mg Chew, 81 MG PO DAILY for 30 Days, #30 TAB 2 Refills Prov:ODIN VILLANUEVA MD 07/20/17 Atorvastatin* (Atorvastatin*) 40 Mg Tablet, 10 MG PO DAILY for 30 Days, #30 TAB Prov:ODIN VILLANUEVA MD 07/20/17 Lisinopril* (Lisinopril*) 10 Mg Tablet, 10 MG PO BID for 30 Days, #60 TAB Prov:ODIN VILLANUEVA MD 07/20/17 Metformin Hcl (Glucophage) 500 Mg Tablet, 750 MG PO BID for 30 Days, #60 TAB 4 Refills Prov:ODIN VILLANUEVA MD 07/20/17 Allergies Allergies: Coded Allergies: No Known Drug Allergies (Verified Allergy, Mild, 03/13/18) PMhx/Soc History of Surgery: No Anesthesia Reaction: No Hx Neurological Disorder: No Hx Respiratory Disorders: No Hx Cardiac Disorders: Yes (HTN) Hx Psychiatric Problems: No Hx Miscellaneous Medical Probl: Yes (DMII) Hx Alcohol Use: No Hx Substance Use: No Hx Tobacco Use: No Smoking Status: Never smoker Physical Exam Vitals Vital Signs Date Temp Pulse Resp B/P (MAP) Pulse Ox O2 O2 Flow FiO2 Time Delivery Rate 12/12/18 84 16 132/86 99 Room Air 04:56 (101) 12/12/18 98.9 72 19 197/92 99 Room Air 02:57 (127) 12/12/18 98.9 104 197/92 99 01:19 (127) Physical Exam Const: Well-appearing, well-developed well-nourished Head: Atraumatic Eyes: Normal Conjunctiva ENT: Normal External Ears, Nose and Mouth. There is a small perforation noted to the left TM, there is no purulent drainage, external ear canal is otherwise unremarkable with no cobblestoning Neck: Full range of motion. No meningismus. Resp: Clear to auscultation bilaterally Cardio: Regular rate and rhythm, no murmurs Abd: Soft, non tender, no rebound or guarding, no McBurney's point tenderness, negative Husain sign, non distended. Normal bowel sounds Skin: No petechiae or rashes Back: No midline or flank tenderness Ext: No cyanosis, or edema Neur: Awake and alert, cranial nerves II through XII intact, strength 5 out of 5 in all extremities Psych: Normal Mood and Affect Result Diagram: 12/12/1821912/12/18219 Results 24 hrs Laboratory Tests Test 12/12/18 01:25 12/12/18 01:51 12/12/18 02:20 12/12/18 03:08 Bedside Glucose 369 mg/dL 339 mg/dL Blood Gas Blood venous Specimen Source Arterial Blood 12/12/2018 2:25: Date Drawn 21 AM Arterial Blood VENOUS LINE Gas Puncture Site [place] Test N/A Venous Blood pH 7.355 Venous Blood 54.0 mmHG pCO2 (Temp Corrected) Venous Blood pO2 22.5 mmHG (Temp Corrected) Venous Blood 29.5 mmol/L HCO3 Venous Blood 39.6 mmHG Oxygen Saturation Venous Blood 2.7 mmol/L Base Excess Venous Blood 14.7 g/dl Total Hemoglobin Venous Blood 39.4 % Oxyhemoglobin Venous Blood 0.2 % Methemoglobin Carboxyhemoglobi 0.3 % n Blood Gas 37.0 C Temperature Blood Gas ROOM AIR Modality FiO2 21.0 % Blood Gas UP Notified Whom Blood Gas 12/12/2018 2:34: Notified Time 54 AM White Blood 6.8 10^3/ul Count Red Blood Count 4.56 10^6/ul Hemoglobin 13.6 g/dl Hematocrit 39.7 % Mean Corpuscular 87.1 fl Volume Mean Corpuscular 29.8 pg Hemoglobin Mean Corpuscular 34.3 g/dl Hemoglobin Natalia nt Red Cell 11.9 % Distribution Width Platelet Count 274 10^3/UL Mean Platelet 10.8 fl Volume Immature 0.100 % Granulocytes % Neutrophils % 60.2 % Lymphocytes % 31.9 % Monocytes % 6.3 % Eosinophils % 1.2 % Basophils % 0.3 % Nucleated Red 0.0 /100WBC Blood Cells % Immature 0.010 10^3/ul Granulocytes # Neutrophils # 4.1 10^3/ul Lymphocytes # 2.2 10^3/ul Monocytes # 0.4 10^3/ul Eosinophils # 0.1 10^3/ul Basophils # 0.0 10^3/ul Nucleated Red 0.0 10^3/ul Blood Cells # Urine Color COLORLESS Urine Clarity CLEAR Urine pH 7.0 Urine Specific 1.026 [place] Urine Ketones NEGATIVE mg/dL Urine Nitrite NEGATIVE mg/dL Urine Bilirubin NEGATIVE mg/dL Urine NEGATIVE mg/dL Urobilinogen Urine Leukocyte TRACE Alan/ul Esterase Urine 159 /HPF Microscopic RBC Urine 12 /HPF Microscopic WBC Urine Squamous FEW /HPF Epithelial Cells Urine Yeast MANY /HPF (Budding) Urine Hemoglobin 2+ mg/dL Urine Glucose 3+ mg/dL Urine Total 1+ mg/dl Protein Sodium Level 139 mmol/L Potassium Level 4.2 mmol/L Chloride Level 100 mmol/L Carbon Dioxide 30 mmol/L Level Anion Gap 9 Blood Urea 9 mg/dl Nitrogen Creatinine 0.35 mg/dl Est Glomerular > 60 mL/min Filtrat Rate mL/min Glucose Level 401 mg/dl Calcium Level 9.5 mg/dl Phosphorus Level 3.7 mg/dl Magnesium Level 1.9 mg/dl Total Bilirubin 0.3 mg/dl Direct Bilirubin 0.00 mg/dl Indirect 0.3 mg/dl Bilirubin Aspartate Amino 17 IU/L Transf (AST/SGOT ) Alanine 22 IU/L Aminotransferase (ALT/SGPT) Alkaline 210 IU/L Phosphatase Troponin I < 0.012 ng/ml Total Protein 7.9 g/dl Albumin 3.9 g/dl Globulin 4.00 g/dl Albumin/Globulin 0.97 Ratio Test 12/12/18 03:11 12/12/18 04:41 Bedside Glucose 393 mg/dL 305 mg/dL Current Medications Medications Dose Sig/Jocelyn Start Time Status Last (Trade) Ordered Route PRN Stop Time Admin Dose Reason Admin Sodium 540 ml @ ONCE ONCE 12/12/18 DC 12/12/18 Chloride 540 mls/hr IV 02:00 02:46 4/29/19 02:59 Insulin 10 unit ONCE ONCE 12/12/18 DC 12/12/18 Human SC 04:00 04:46 Regular 12/12/18 04:08 (Humulin R) Procedures/MDM Is a 53-year-old female who presents for evaluation of multiple complaints: #Bilateral upper and lower examinee numbness. Is associated with pain, and her symptoms are most consistent with peripheral neuropathy, she has no focal symptoms or other signs concerning for acute CVA. Had an extensive discussion regarding blood glucose control, and patient plans on follow-up with her primary care doctor for this. Her labs are otherwise overall unremarkable, with no su dence of DKA, and no significant electrolyte abnormalities #Ear pain. A left-sided TM perforation was noted, patient was given to her for Ciprodex, water precautions were given, I also advised that she follow-up with ENT for further management. #Hematuria. Patient has no urinary symptoms, he was also some pyuria noted, I think it is reasonable to treat empirically for UTI for the time being, however given her age, I advised her to follow-up with her primary care doctor for repeat urinalysis, and further work-up as needed, she is noted will do this and recommended returning to the ED for further evaluation. All findings were discussed with the patient, and at discharge she was in no distress. EKG: Rate/Rhythm: Normal Sinus Rhythm QRS, ST, T-waves: No changes consistent w/ acute ischemia Impression: No evidence of ischemia or arrhythmia Departure Diagnosis: Primary Impression: Hematuria Hematuria type: unspecified type Qualified Codes: R31.9 - Hematuria, unspecified Additional Impressions: Diabetic neuropathy with neurologic complication Perforated tympanic membrane Laterality: unspecified laterality Qualified Codes: H72.90 - Unspecified perforation of tympanic membrane, unspecified ear Condition: NETTE Bains MD Dec 12, 2018 04:24
[2018-12-12] MEDS ORDERED: CIPR7.5D BOTH EARS (04:34)
[2018-12-12] MEDS ORDERED: CEPH-443 PO (04:34)
[2018-12-12 04:56] VITALS: BP 132/86; PULSE 84; RESP 16
== END 2018-12-12 05:25 | disposition home or self-care (01) ==
LOC: E/R 01:18
DX: R31.9 Hematuria, unspecified (principal); I10 Essential (primary) hypertension; H72.92 Unspecified perforation of tympanic membrane, left ear; E11.49 Type 2 diabetes mellitus with other diabetic neurological complication; E11.40 Type 2 diabetes mellitus with diabetic neuropathy, unspecified; Z79.84 Long term (current) use of oral hypoglycemic drugs; Z79.82 Long term (current) use of aspirin
CPT/HCPCS: 36415; 80053; 81001; 82803; 82962; 83735; 84100; 84484; 85025; 87086; 93005; J1815; J7030; 96372